=== PATIENT | female | born 1985 | race Caucasian/White ===

== ENCOUNTER 2025-01-13 15:56 | Outpatient (AMB) | payer OTHER, SELFPAY ==
--- NOTE | 2025-01-13 15:59 | MHC.OFFVIS ---
Intake Visit Reasons: 6m Allergies amoxicillin Allergy (Unknown, Verified 01/13/25 16:03) Unknown Penicillins Allergy (Unknown, Verified 01/13/25 16:03) Unknown Medication List - Last Reconciled 01/13/25 by Bethany Sylvester CNP albuterol sulfate 90 mcg/actuation 1 puff inhalation Q6H PRN cetirizine (Zyrtec) 10 mg PO DAILY PRN desogestrel-ethinyl estradiol 0.15-0.03 mg (Apri) 1 tab PO DAILY metoclopramide HCl 5 mg PO QIDACHS montelukast 10 mg PO BEDTIME pentosan polysulfate sodium (Elmiron) 100 mg PO TID rimegepant (Nurtec ODT) 75 mg PO ONCE PRN rizatriptan take 1 tab at onset of headache; if no relief may repeat 1 tab after at least 2 hrs; max = 3 tabs/24 hr PO topiramate 100 - 200 mg PO DAILY trospium 20 mg PO BID HPI Comments Details: 39-year-old woman with migraine headaches. She was doing okay. Headaches were okay and were happening mostly around period. Nurtec as needed helps. Sleep was okay. [facility], [facility] Medical History (Updated 01/13/25 @ 16:02 by Bethany Sylvester CNP) Interstitial cystitis Asthma Obesity Bipolar disorder Menstrual migraine Migraine without aura Review of Systems Const Denies chills, Denies daytime sleepiness, Denies difficulty sleeping, Denies fatigue, Denies fever(s), Denies frequent falls, Reports headache(s), Denies increased appetite, Denies poor appetite, Denies snoring, Denies weakness, Denies weight gain and Denies weight loss Eyes Denies loss of vision ENT Denies vertigo, Denies dizziness and Reports headache(s) Card Denies chest pain at rest, Denies chest pain with activity, Denies syncope, Denies leg edema and Denies palpitations Resp Denies snoring GI Denies constipation, Denies heartburn, Denies diarrhea and Denies nausea Denies urinary frequency, Denies urinary incontinence and Denies urinary urgency Musc Denies abnormal gait, Denies numbness and Denies tingling Skin/Breast Denies dry skin and Denies rash Neuro Denies abnormal gait, Denies vertigo, Denies dizziness, Denies syncope, Denies frequent falls, Reports headache(s), Denies lack of coordination, Denies loss of vision, Denies memory loss, Denies numbness, Denies restless legs, Denies seizure-like activity, Denies tingling, Denies paresthesias, Denies tremor(s) and Denies weakness Psych Denies anxiety, Denies depression, Denies auditory hallucinations, Denies memory loss, Denies visual hallucinations and Denies suicidal ideation Endo Denies fatigue and Denies palpitations Physical Exam Const Other: General Appearance:? normal, in no acute distress. Skin:? no rashes, no significant birthmarks. Heart:? S1, S2 normal, no murmurs. Lungs:? clear anteriorly and posteriorly. Extremities:? no edema. Psych:? alert, oriented, cognitive function intact, cooperative with exam. Neuro Other: Mental Status:?Normal attention, orientation, memory and affect.? Cranial Nerves:?Pupils are equal, round and reactive to light. External occular muscles are intact. Visual garcia are full. Face is symmetrical. Facial sensations are normal. Tongue is midline. Palate elevates symmetrically. Shoulder shrugging is normal. Hearing to bedside conversation is normal. Sensory Exam:?....? Coordination:?No ataxia,?no titubation.? Gait Exam: Within normal limits. Cerebellar Signs:?[id number] is okay. Extrapyramidal System:?No tremor, rigidity with normal facial expressions.? Pronator Drift:?Not present.? Involuntary Movements:?No tremors seen.? Speech:?Normal.? Assessment & Plan Assessment & Plan (1) Migraine without aura: Code(s): G43.009 - Migraine without aura, not intractable, without status migrainosus Category: Medical Qualifiers: Status migrainosus presence: without status migrainosus Intractability: not intractable Qualified Code(s): G43.009 - Migraine without aura, not intractable, without status migrainosus Plan: Continue topiramate 100mg 1-2 tablets daily. Continue Nurtec 75mg 1 tablet once a day as needed #16 for 30 days. (2) Menstrual migraine: Code(s): G43.829 - Menstrual migraine, not intractable, without status migrainosus Category: Medical Qualifiers: Status migrainosus presence: without status migrainosus Intractability: not intractable Qualified Code(s): G43.829 - Menstrual migraine, not intractable, without status migrainosus Plan Meds tried: sumatriptan, rizatriptan. Medications: New rimegepant (Nurtec ODT) 75 mg PO Q OTHER DAY PRN 16 tabs 5RF migraine headache 30 days Changed From topiramate 100 - 200 mg PO DAILY To topiramate 100 - 200 mg (1 - 2 x 100 mg) PO DAILY 36 tabs 5RF 30 days Discontinued rimegepant (Nurtec ODT) Discontinued Reason: Order 75 mg PO ONCE PRN migraine Coding Level of Care Code Est Pt Level 4 (63248) Diagnoses Migraine without aura and without status migrainosus, not intractable G43.009 Status migrainosus presence: without status migrainosus Intractability: not intractable Menstrual migraine without status migrainosus, not intractable G43.829 Status migrainosus presence: without status migrainosus Intractability: not intractable
--- OUTSIDE RECORDS SUMMARY | 2025-01-13 21:10 | XMS_ITS ---
Author Name [facility] Organization Unknown Care Team Organization Name Specialty Phone Email Start Date End Da te [facility] 05/09/2022 12/18/2023
--- OUTSIDE RECORDS SUMMARY | 2025-01-13 21:10 | XMS_ITS | Clinical Summary ---
Author Organization [facility] Address [address] [place] [address] Phone Care Team Providers Care Dividend Deposit Entry Clerk Name Role Phone Jessie Alcantara MD Primary Care Provider [phone] Allergies Active Allergy Reactions Criticality Noted Date Comments Adhesive Tape-Silicones Rash 06/17/2019 Amoxicillin 01/08/2024 Clindamycin 01/01/2013 Other 06/03/2020 Hives with fish oil supplement Can eat fish and shellfish Penicillins Hives,Rash High 08/02/2012 Medications topiramate (TOPAMAX) 100 mg tablet Take 1 tablet (100 mg total) by mouth 1 (one) time each day. 07/24/19 21 Active desogestreL-ethin yl estradioL (Apri) 0.15-0.03 mg per tablet Take 1 tablet by mouth 1 (one) time each day. Active cetirizine (ZyrTEC) 10 mg capsule Take 1 capsule (10 mg total) by mouth 1 (one) time each day. Active multivit-min/iron /folic acid/K (ADULTS MULTIVITAMIN ORAL) Take by mouth. Activ e rimegepant (NURTEC) 75 mg dispersible tabletIndications :Other migraine without status migrainosus, intractable Dissolve 1 tablet (75 mg total) on top of the tongue 1 (one) time each day if needed for migraine. 8 tablet 2 06/17/19 25 Active albuterol HFA (PROAIR HFA ; PROVENTIL HFA ; VENTOLIN HFA) 90 mcg/actuation inhaler Inhale 1 puff by mouth every 6 (six) hours if needed for wheezing or shortness of breath. 6.7 g 5 06/17/19 25 Active montelukast (SINGULAIR) 10 mg tabletIndications :Mild persistent asthma, uncomplicated TAKE 1 TABLET BY MOUTH EVERYDAY AT BEDTIME 90 tablet 1 09/13/19 25 Active amitriptyline (ELAVIL) 10 mg tabletIndications :Irritable bowel syndrome with both constipation and diarrhea TAKE 1 TABLET BY MOUTH EVERYDAY AT BEDTIME 90 tablet 1 09/17/19 25 Active trospium (SANCTURA) 20 mg tabletIndications :Chronic interstitial cystitis TAKE 1 TABLET BY MOUTH TWICE A DAY 180 tablet 1 09/17/19 25 Active diazePAM (VALIUM) 5 mg tablet USE 1 TABLET VAGINALLY DAILY NEEDED 01/28/20 24 Active EPINEPHrine (EPIPEN) 0.3 mg/0.3 mL injection INJECT INTRAMUSCULARLY NEEDED FOR ANAPHYLAXIS 10/29/19 25 Active Asmanex HFA 200 mcg/actuation HFA aerosol inhaler inhaler INHALE 2 PUFFS INTO LUNGS ONCE DAILY AT BEDTIME 10/29/19 25 Active dicyclomine (BENTYL) 20 mg tablet Take 1 tablet (20 mg total) by mouth 4 (four) times a day if needed. 10/29/19 25 Active simvastatin (ZOCOR) 10 mg tablet Take 1 tablet (10 mg total) by mouth at bedtime. 90 tablet 1 11/26/19 25 Active Active Problems Problem Noted Date Diagnosed Date Lumbar spondylosis 06/19/2023 Migraines 04/22/2019 Assessment & Plan (06/17/2024 10:28 AM EST): Continue Topamax and Nurtec as prescribed by neurology. Orders: rimegepant (NURTEC) 75 mg dispersible tablet; Dissolve 1 tablet (75 mg total) on top of the tongue 1 (one) time each day if needed for migraine. Hyperlipidemia 08/17/2015 Assessment & Plan (06/17/2024 10:28 AM EST): Follow low-cholesterol diet. Continue simvastatin. Orders: Lipid panel with reflex to direct LDL; Future Comprehensive metabolic panel; Future Chronic interstitial cystitis 08/02/2013 Overview (01/08/2024): Dr Zavala Assessment & Plan (06/17/2024 10:28 AM EST): She has an upcoming appointment with urology. Continue trospium per urology. Orders: trospium (SANCTURA) 20 mg tablet; Take 1 tablet (20 mg total) by mouth 2 (two) times a day. Asthma 01/01/2013 Overview (01/08/2024): Dr Ramirez Assessment & Plan (06/17/2024 10:28 AM EST): Continue Flovent, albuterol. Is being followed by slot host as well. Bipolar 1 disorder (CMS/HCC V24, CMS/HCC V28) Overview (01/08/2024): Seeing therapist Irritable bowel syndrome 01/01/2013 Overview (01/08/2024): Dr Aguilar Assessment & Plan (06/17/2024 10:28 AM EST): She is currently on both amitriptyline and dicyclomine for her IBS with constipation and diarrhea and is being followed by GI. Orders: amitriptyline (ELAVIL) 10 mg tablet; Take 1 tablet (10 mg total) by mouth at bedtime. Perennial allergic rhinitis 01/01/2013 Resolved Problems Problem Noted Date Diagnosed Date Resolved Date Conjunctivitis, allergic, bilateral 06/03/2020 11/25/2024 Encounters Date Type Department Care Team Description 11/25/2024 9:30 AM EDT Office Visit Internal Medicine - [facility] [address] [place] [address] Darlyn Mclaughlin, ÁNGELA Other migraine without status migrainosus, intractable (Primary Dx); Chronic interstitial cystitis; Perennial allergic rhinitis; Asthma, unspecified asthma severity, unspecified whether complicated, unspecified whether persistent; Irritable bowel syndrome with both constipation and diarrhea; Lumbar spondylosis; Hyperlipidemia, unspecified hyperlipidemia type; Bipolar 1 disorder ([facility] V24, [facility] V28); Annual physical exam; Screening for metabolic disorder; Screening examination for STI from Last 3 Months Immunizations Name Administration Dates Next Due Influenza Quadravalent, MDCK , 0.5ml, preservative free (Flucelvax) 6mo and older 01/21/2022 Influenza, Unspecified 01/27/2023 Pfizer SARS-CoV-2 COVID-19, mRNA, LNP-S, preservative free 03/23/2021 Pneumococcal polysaccharide 23 valent (Pneumovax 23) 2yo and older 01/28/2021 Td Tetanus diptheria (Tdvax) 7yo and older 01/28 Tdap Tetanus diptheria acell ular pertussis (Boostrix; Adacel) 7yo and older 01/24/2011 Surgical History Surgery Date Site/Laterality Comments OTHER SURGICAL HISTORY PROCEDURE: HISTORY OTHER; COMMENT: surgical incision lesion of gum OTHER SURGICAL HISTORY PROCEDURE: ---- OTHER ----; COMMENT: breast cyst removal of left breast Medical History Medical History Date Comments Asthma 01/01/2013 DX:Asthma; COMME NT: Dr Ramirez Bipolar 1 disorder ([facility] V24, [facility] V28) 01/01/2013 DX:Bipolar 1 disorder ([facility]) Chronic interstitial cystitis 08/02/2013 DX :Chronic interstitial cystitis; COMMENT: Dr Zavala Essential hypertriglyceridemia 08/17/2015 D X:Essential hypertriglyceridemia Irritable bowel syndrome 01/01/2013 DX:Irri table bowel syndrome; COMMENT: Dr Aguilar Allergic rhinitis 01/01/2013 DX:Allergic rh initis Lumbar spondylosis 06/19/2023 DX:Lumbar spo ndylosis Hyperlipidemia 12/27/2023 DX:Hyperlipidemi a Family History Medical History Relation Name Comments Other: hyperthyroid Aunt maternal Hypertension Father hyperch, afib Hypertension Maternal Grandfather stroke, cad Hypertension Maternal Grandmother Hypertension Mother hyperchol, skin cancer Diabetes Paternal Grandmother cad, br east cancer Relation Name Status Comments Aunt maternal Alive Father Alive Maternal Grandfather Alive Maternal Grandmother Alive Mother Alive Paternal Grandfather Paternal Grandmother Social History Tobacco Use Types Packs/Day Years Used Date Smoking Tobacco: Never Smokeless Tobacco: Never Tobacco Cessation:Counseling Given: Not Answered Alcohol Use Standard Drinks/Week Comments Yes 0 (1 standard drink = 0.6 oz pur e alcohol) Housing Instability Answer Date Recorde d Are you worried that in the next 2 months you may not have stable housing? No 06/11/2024 Food Access & Nutrition Answer Date Rec orded Do you have access to a vari ety of food including fruits and vegetables? Yes 06/11/2024 Access to Healthcare Answer Date Record ed Within the last 3 months, ho w many times did you visit the emergency department for your medical care? 0 06/11/2024 Health Literacy Answer Date Recorded How often do you need to hav e someone help you when you read instructions, pamphlets, or other written material from your doctor or pharmacy? Never 06/11/2024 Caregiver: How often do you need to have someone help you when you read instructions, pamphlets, or other written material from your doctor or pharmacy? Not on file 06/11/2024 Financial Risk Answer Date Recorded How hard is it for you to pa y for the very basics like food, housing, medical care, and air conditioning / heating? Not very hard 06/11/2024 Transportation Answer Date Recorded Has the lack of transportati on kept you from meetings, work, or from getting things needed for daily living? No Has the lack of transportati on kept you from medical appointments or from getting medications? No 06/11/2024 Social Isolation Answer Date Recorded How often do you feel lonely or isolated from th ose around you? Never 06/11/2024 Food Risk Answer Date Recorded Within the past 12 months we worried whether our food would run out before we got money to buy more. Never true 06/11/2024 Within the past 12 months th e food we bought just didn't last and we didn't have money to get more. Never true 06/11/2024 Dependent Care Answer Date Recorded Do you need help finding or paying for care for your loved ones. For example, child welfare assistant or elderly care for an older adult? No 06/11/2024 Education Answer Date Recorded Do you think completing more education or training, like finishing a GED, going to college, or learning a trade, would be helpful for you? No 06/11/2024 Employment and Income Answer Date Recor ded During the last four weeks, have you been actively looking for work? No 06/11/2024 Living Situation Answer Date Recorded What is your living situation? 0 06/11/2024 Comments No Sex and Gender Information Value Date Recorded Sex Assigned at Not on file Legal Sex Female 9:42 AM EST Gender Identity Not on file Sexual Orientation Not on file Obstetrics History Last Filed Vital Signs Vital Sign Reading Time Taken Comments Blood Pressure 120/84 11/25/2024 9:31 AM EDT aut o cuff Pulse 100 11/25/2024 9:31 AM EDT auto cuff Temperature 37.4 C (99.4 F) 11/25/2024 9:31 AM EDT Respiratory Rate - - Oxygen Saturation - - Inhaled Oxygen Concentration - - Weight 83.6 kg (184 lb 4.8 oz) 11/25/2024 9:31 A M EDT Height 163.2 cm (5' 4.25 ) 11/25/2024 9:31 AM ED T Body Mass Index 31.39 11/25/2024 9:31 AM EDT Plan of Treatment Upcoming Encounters Date Type Department Care Team (Late st Contact Info) Description 05/29/2025 3:00 PM EST Office Visit Internal Medicine - [address] [phone] Jessie Alcantara MD [address] [place] [address] Health Maintenance Due Date Last Done Comments Influenza Vaccine (#1) 2024 , 01/21/2022 Social Influencers of Health Screening 06/11/2025 06/11/2024 Cervical Cancer Screening: HPV 04/03/2029 04/03/2024 Cholesterol Screening (Lipid Panel) 06/17/2029 06/17/2024, 08/15/2023 DTaP,Tdap,and Td Vaccines (3 - Td or Tdap) 01/28/2031 01/28/2021, 01/24/2011 Pneumococcal Vaccine: Pediatrics (0 to 5 Years) and At-Risk Patients (6 to 49 Years) Discontinued 01/28/2021 COVID-19 Vaccine Discontinued 03/23/2021, 08/04/2020, 07/14/2020 Depression Screening Completed 06/11/2024 HIV Screening Completed 11/25/2024, 11/25/2024 Hepatitis C Screening Completed 11/25/2024 HIB Vaccines Aged Out No longer eligi ble based on patient's age to complete this topic HPV Vaccines Aged Out No longer eligi ble based on patient's age to complete this topic Hepatitis A Vaccines Aged Out No long er eligible based on patient's age to complete this topic Hepatitis B Vaccines Discontinued IPV Vaccines Aged Out No longer eligi ble based on patient's age to complete this topic MMR Vaccines Aged Out No longer eligi ble based on patient's age to complete this topic Meningococcal ACWY Vaccine Aged Out N o longer eligible based on patient's age to complete this topic Meningococcal B Vaccine Aged Out No l onger eligible based on patient's age to complete this topic RSV Immunization Patients Under 20 months Aged Out No longer eligible based on patient's age to complete this topic Varicella Vaccines Aged Out No longer eligible based on patient's age to complete this topic Procedures Procedure Name Priority Date/Time Associated Diagnosis Comments CBC WITH AUTO DIFFERENTIAL Routine 11/25/2024 10:24 AM EDT Screening for metabolic disorder HEPATITIS C ANTIBODY Routine 11/25/2024 10:24 AM EDT Screening examination for STI HIV 1, 2 ANTIBODY, P24 ANTIGEN WITH REFLEX TO DIFFERENTIATION Routine 11/25/2024 10:24 AM EDT Screening examination for STI CBC AND DIFFERENTIAL Routine 11/25/2024 10:24 AM EDT Screening for metabolic disorder THYROID STIMULATING HORMONE WITH REFLEX TO FREE T4 AND FREE T3 Routine 11/25/2024 10:24 AM EDT Screening for metabolic disorder HEMOGLOBIN A1C Routine 11/25/2024 10:24 AM EDT Screening for metabolic disorder LIPID PANEL WITH REFLEX TO DIRECT LDL Routine 06/17/2024 11:52 AM EST Hyperlipidemia, unspecified hyperlipidemia type HM HPV Routine 04/03/2024 from Last 3 Months or Most Recently Relevant to Health Maintenance Results * Hepatitis C antibody (11/25/2024 10:24 AM EDT) Pathologist [facility] Hepatitis C Antibody Negative Negative LAB CHEMISTRY METHOD 11/25/2024 6:34 PM EDT [facility] Blood Venous blood specimen / Unknown Venipuncture / Unknown 11/25/2024 10:24 AM EDT 11/25/2024 10:24 AM EDT Darlyn Foster PROCESS ENGINEERING INTERN LAB BLOOD ORDERABLES Final R esult [facility] [address] [place] [address], [place] [phone] * HIV 1,2 antibody, p24 antigen with reflex to differentiation (11/25/2024 10:24 AM EDT) [facility] HIV Combo AB/AG Negative Negative LAB CHEMISTRY METHOD 11/25/2024 6:35 PM EDT [facility] Blood Venous blood specimen / Unknown Venipuncture / Unknown 11/25/2024 10:24 AM EDT 11/25/2024 10:24 AM EDT Narrative [facility] - 11/25/2024 6:35 PM EDT This assay is a 4th generation assay allowing for earlier detection of HIV infection by detecting the presence of the HIV-1 p24 antigen as well as the traditional antibodies to HIV type 1 (including group O) and type 2. Use of a 4th generation assay is the current CDC recommendation for HIV screening. us Darlyn Foster PROCESS ENGINEERING INTERN LAB BLOOD ORDERABLES Final R esult Performing Organization Address City/[facility]/ZIP Co de Phone Number [facility] [address] [place] [address], [place] [phone] * Thyroid stimulating hormone with reflex to free t4 and free t3 (11/25/2024 10:24 AM EDT) [facility] TSH 0.93 0.40 - 4.00 mcIU/mL LAB CHEMISTRY METHOD 11/25/2024 5:56 PM EDT [facility] Blood Venous blood specimen / Unknown Venipuncture / Unknown 11/25/2024 10:24 AM EDT 11/25/2024 10:24 AM EDT us Darlyn Foster PROCESS ENGINEERING INTERN LAB BLOOD ORDERABLES Final R esult [facility] [address] [place] [address], * (ABNORMAL) CBC auto differential (11/25/2024 10:24 AM EDT) WBC 7.6 4.8 - 10.8 K/mcL LAB HEMETOLOGY METHOD 11/25/2024 1:10 PM EDT [facility] RBC 4.60 3.80 - 4.80 M/mcL LAB HEMETOLOGY METHOD 11/25/2024 1:10 PM EDT [facility] Hemoglobin 13.7 11.5 - 16.0 g/dL LAB HEMETOLOGY METHOD 11/25/2024 1:10 PM EDT [facility] Hematocrit 43.5 35.0 - 47.0 % LAB HEMETOLOGY METHOD 11/25/2024 1:10 PM EDT [facility] MCV 93.8 79.0 - 98.0 FL LAB HEMETOLOGY METHOD 11/25/2024 1:10 PM EDT [facility] MCH 29.5 27.0 - 32.0 pcg LAB HEMETOLOGY METHOD 11/25/2024 1:10 PM EDT [facility] MCHC 31.5(L) 32.0 - 37.0 g/dL LAB HEMETOLOGY METHOD 11/25/2024 1:10 PM EDT [facility] RDW 13.2 11.0 - 15.0 % LAB HEMETOLOGY METHOD 11/25/2024 1:10 PM EDT [facility] Platelets 220 130 - 400 K/mcL LAB HEMETOLOGY METHOD 11/25/2024 1:10 PM EDT [facility] MPV 11.9(H) 7.0 - 11.0 FL LAB HEMETOLOGY METHOD 11/25/2024 1:10 PM EDT [facility] NRBC 0.0 <1.0 % LAB HEMETOLOGY METHOD 11/25/2024 1:10 PM EDT [facility] NRBC Absolute 0.00 <0.10 K/mcL LAB HEMETOLOGY METHOD 11/25/2024 1:10 PM EDT [facility] Neutrophils Relative 59.5 % LAB HEMETOLOGY METHOD 11/25[facility]24 [facility] Lymphocytes Relative 30.8 % LAB HEMETOLOGY METHOD 11/25/2024 1:10 PM EDT [facility] Monocytes Relative 5.3 % LAB HEMETOLOGY METHOD 11/25/2024 1:10 PM EDT [facility] Eosinophils Relative 3.0 % LAB HEMETOLOGY METHOD 11/25[facility]24 [facility] Basophils Relative 0.9 % LAB HEMETOLOGY METHOD 11/25/2024 1:10 PM EDT [facility] Immature Granulocytes Relative 0.5 % LAB HEMETOLOGY METHOD 11/25/2024 1:10 PM EDT [facility] Neutrophils Absolute 4.52 1.50 - 7.00 K/mcL LAB HEMETOLOGY METHOD 11/25/2024 1:10 PM EDT [facility] Lymphocytes Absolute 2.34 1.00 - 5.00 K/mcL LAB HEMETOLOGY METHOD 11/25/2024 1:10 PM EDT [facility] Monocytes Absolute 0.40 0.20 - 1.00 K/mcL LAB HEMETOLOGY METHOD 11/25/2024 1:10 PM EDT [facility] Eosinophils Absolute 0.23 0.00 - 0.50 K/[facility] LAB HEMETOLOGY METHOD 11/25/2024 1:10 PM EDT [facility] Basophils Absolute 0.07 0.00 - 0.20 K/[facility] LAB HEMETOLOGY METHOD 11/25/2024 1:10 PM EDT [facility] Immature Granulocytes Absolute 0.04(H) 0.00 - 0.03 K/[facility] HEMETOLOGY METHOD 11/25/2024 1:10 PM EDT [facility] Blood Venous blood specimen / Unknown Venipuncture / Unknown 11/25/2024 10:24 AM EDT 11/25/2024 10:24 AM EDT us Darlyn Foster PROCESS ENGINEERING INTERN LAB BLOOD ORDERABLES Final R esult Performing Organization Address City/[facility]/ZIP Co de Phone Number [facility] [address] [place] [address], [place] [phone] * Hemoglobin A1c (11/25/2024 10:24 AM EDT) Hemoglobin A1C 4.9 <6.5 % LAB CHEMISTRY METHOD 11/25/2024 7:05 PM EDT [facility] Mean Bld Glu Estim. 94 mg/dL LAB CHEMISTRY METHOD 11/25/2024 7:05 PM EDT [facility] Blood Venous blood specimen / Unknown Venipuncture / Unknown 11/25/2024 10:24 AM EDT 11/25/2024 10:24 AM EDT us Darlyn Foster PROCESS ENGINEERING INTERN LAB BLOOD ORDERABLES Final R esult Performing Organization Address City/[facility]/ZIP Co de Phone Number [facility] [address] [place] [address], [place] [phone] * (ABNORMAL) Lipid panel with reflex to direct LDL (06/17/2024 11:52 AM EST) Cholesterol 207(H) 0 - 200 mg/dL LAB CHEMISTRY METHOD 06/17/2024 2:33 PM EST [facility] Triglycerides 144 0 - 150 mg/dL LAB CHEMISTRY METHOD 06/17/2024 2:33 PM EST [facility] HDL 82 >=40 mg/dL LAB CHEMISTRY METHOD 06/17/2024 2:33 PM EST [facility] LDL Calculated 96 0 - 100 mg/dL LAB CHEMISTRY METHOD 06/17/2024 2:33 PM [facility] VLDL Cholesterol Dylon 28.8 mg/dL LAB CHEMISTRY METHOD 06/17/2024 2:33 PM [facility] Non HDL Chol. (LDL+VLDL) 125 <145 mg/dL LAB CHEMISTRY METHOD 06/17/2024 2:33 PM [facility] Chol/HDL Ratio 2.5 0.0 - 4.4 LAB CHEMISTRY METHOD 06/17/2024 2:33 PM [facility] Blood Venous blood specimen / Unknown Venipuncture / Unknown 06/17/2024 11:52 AM EST 06/17/2024 11:52 AM EST Agustín Riley MD LAB BLOOD ORDERABLES Lavonne l Result [facility] [address] [place] [address], * Cervical Cancer Screening: HPV (04/03/2024) Historical Provider HEALTH MAINTENANCE Edited Result - Final from Last 3 Months or Most Recently Relevant to Health Maintenance Insurance ED [facility] Care Teams Dividend Deposit Entry Clerk Relationship Specialty Start Date End Date Jessie Alcantara MD [address] [facility] [address] PCP - General Internal Medicine 11/25/24
== END 2025-01-13 16:16 | disposition home or self-care (01) ==
PROVIDERS: PCP Internal Medicine; Visit Provider Registered Nurse
DX: G43.009 Migraine without aura, not intractable, without status migrainosus (principal); G43.829 Menstrual migraine, not intractable, without status migrainosus
CPT/HCPCS: 99214